=== PATIENT | male | born 1985 | race Hispanic/Latino ===

== ENCOUNTER 2017-02-09 05:14 | Emergency (ER) | payer OTHER ==
[2017-02-09 05:31] VITALS: BP 116/86
--- NOTE | 2017-02-09 05:51 | XRay Report ---
FINAL REPORT EXAM: XR KNEE 3V RT HISTORY: fall RT KNEE PAIN TECHNIQUE: Three views of the right knee were obtained. FINDINGS: There is very mild prepatellar soft tissue swelling. There is no evidence of fracture or joint effusion. All 3 compartments otherwise well maintained IMPRESSION: Mild prepatellar soft tissue swelling. No evidence of fracture.
--- NOTE | 2017-02-09 06:04 | Emergency Department Report ---
ED Lower Extremity HPI - General Chief Complaint: Extremity Injury, Lower Stated Complaint: RIGHT KNEE PAIN Time Seen by Provider: 02/09/17 05:51 Source: patient Mode of arrival: Ambulatory Limitations: No Limitations - History of Present Illness Initial Comments: This is a 31-year-old male nontoxic, well nourished in appearance, no acute signs of distress presents to the ED with c/o of right knee pain. 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 Patient denies any numbness, tingling, fever, chills, nausea, vomiting, chest pressure. Patient denies decreased range of motion. Denies any joint redness. Denies any allergies or past medical history. MD Complaint: knee injury -: This morning Injury: Knee: Right Type of Injury: blunt Place: street/outdoors Severity: mild Severity scale (0 -10): 8 Improves With: nothing Worsens With: nothing Context: fall, direct blow Associated Symptoms: swelling, ambulatory. denies: snap/pop sensation, numbness , tingling, unable to bear weight, able to partially bear weight - Related Data Previous Rx's Medication Instructions Recorded Last Taken Type Ibuprofen [Motrin] 600 mg PO Q8H PRN #30 tablet 02/09/17 Unknown Rx Allergies Allergy/AdvReac Type Severity Reaction Status Date / Time No Known Allergies Allergy Unverified 02/09/17 05:26 ED Review of Systems ROS: Stated complaint: RIGHT KNEE PAIN Other details as noted in HPI Constitutional: denies: chills, fever Eyes: denies: eye pain, eye discharge, vision change ENT: denies: ear pain, throat pain Respiratory: denies: cough, shortness of breath, wheezing Cardiovascular: denies: chest pain, palpitations Endocrine: no symptoms reported Gastrointestinal: denies: abdominal pain, nausea, diarrhea Genitourinary: denies: urgency, dysuria Musculoskeletal: denies: back pain, joint swelling, arthralgia Skin: denies: rash, lesions Neurological: denies: headache, weakness, paresthesias Psychiatric: denies: anxiety, depression Hematological/Lymphatic: denies: easy bleeding, easy bruising ED Past Medical Hx - Past Medical History Previous Medical History?: No - Surgical History Past Surgical History?: No - Social History Smoking Status: Never Smoker Substance Use Type: None - Medications Home Medications: Home Medications Medication Instructions Recorded Confirmed Last Taken Type Ibuprofen [Motrin] 600 mg PO Q8H PRN #30 tablet 02/09/17 Unknown Rx ED Physical Exam - General Limitations: No Limitations General appearance: alert, in no apparent distress - Head Head exam: Present: atraumatic, normocephalic - Eye Eye exam: Present: normal appearance - ENT ENT exam: Present: mucous membranes moist - Neck Neck exam: Present: normal inspection - Respiratory Respiratory exam: Present: normal lung sounds bilaterally. Absent: respiratory distress, wheezes, rales, rhonchi, stridor, chest wall tenderness, accessory muscle use, decreased breath sounds, prolonged expiratory - Cardiovascular Cardiovascular Exam: Present: regular rate, normal rhythm, normal heart sounds. Absent: irregular rhythm, systolic murmur, diastolic murmur, rubs, gallop - GI/Abdominal GI/Abdominal exam: Present: soft, normal bowel sounds. Absent: distended, tenderness, guarding, rebound, rigid, diminished bowel sounds - Rectal Rectal exam: Present: deferred - Extremities Exam Extremities exam: Present: normal inspection, full ROM, tenderness, normal capillary refill. Absent: pedal edema, joint swelling, calf tenderness - Expanded Lower Extremity Exam Right Hip exam: Present: normal inspection, full ROM Upper Leg exam: Present: normal inspection, full ROM Knee exam: Present: normal inspection, full ROM, tenderness, swelling, full knee extension. Absent: abrasion, laceration, ecchymosis, deformity, crepidus, dislocation, effusion, pain w/ pronation/supination, posterior draw sign, pain/ laxity with valgus, pain/laxity with varus Lower Leg exam: Present: normal inspection, full ROM Ankle exam: Present: normal inspection, full ROM Foot/Toe exam: Present: normal inspection, full ROM Neuro vascular tendon exam: Present: no vascular compromise. Absent: pulse deficit, motor deficit, sensory deficit, tendon deficit, extremity cold to touch , pallor, abnormal 2-point discrimination, decreased fine/light touch, foot drop , peroneal nerve deficit, significant pain with passive ROM of distal joint Gait: Positive: observed and limited by pain - Back Exam Back exam: Present: normal inspection, full ROM - Neurological Exam Neurological exam: Present: alert, oriented X3 - Psychiatric Psychiatric exam: Present: normal affect, normal mood - Skin Skin exam: Present: warm, dry, intact, normal color. Absent: rash ED Course Vital Signs 02/09/17 05:22 Temperature 98.3 F Pulse Rate 60 Respiratory 17 Rate Blood Pressure 116/86 O2 Sat by Pulse 99 Oximetry - Reevaluation(s) Reevaluation #1: 02/09/17 06:03 Patient is speaking in full sentences with no signs of distress noted. ED Lower Extremity MDM - Medical Decision Making This is a 31-year-old male that presents with left knee strain. Patient is stable and was examined by me. X-ray has been obtained and is given radiologist with no fractures or dislocation but joint swelling. Patient received Motrin 800 mg by mouth in the ED. Patient received ice to the extremity. Patient was instructed to RICE therapy. Patient received a knee immobilizer. Patient was instructed to Follow-up with a primary care doctor/ orthopedic doctor in 3-5 days or if symptoms worsen and continue return to emergency room as soon as possible. At time time of discharge, the patient does not seem toxic or ill in appearance. No acute signs of distress noted. Patient agrees to discharge treatment plan of care. No further questions noted by the patient. Critical care attestation.: If time is entered above; I have spent that time in minutes in the direct care of this critically ill patient, excluding procedure time. ED Disposition Clinical Impression: Strain of left knee Qualifiers: Encounter type: initial encounter Qualified Code(s): S86.912A - Strain of unspecified muscle(s) and tendon(s) at lower leg level, left leg, initial encounter Disposition: TO HOME OR SELFCARE Is pt being admited?: No Does the pt Need Aspirin: No Condition: Stable Instructions: Knee Pain (ED), Knee Immobilizer (ED), RICE Therapy (ED), Ibuprofen (By mouth) Additional Instructions: Follow-up with a primary care doctor/orthopedic doctor in 3-5 days or if symptoms worsen and continue return to emergency room as soon as possible. Rest, elevate and ice extremity No physical activity that extremity until cleared by orthopedic doctor Prescriptions: Ibuprofen [Motrin] 600 mg PO Q8H PRN #30 tablet PRN Reason: Pain Referrals: ITALO SALINAS MD [Primary Care Provider] - 3-5 Days SHEREE PARISH MD [Staff Physician] - 3-5 Days [facility] [Outside] - 3-5 Days [facility] [Outside] - 3-5 Days Forms: Work/School Release Form(ED)
[2017-02-09] MEDS ORDERED: MOTRIN PO ONE (06:05)
== END 2017-02-09 06:52 | disposition home or self-care (01) ==
LOC: ED 05:14
DX: S86.911A Strain of unspecified muscle(s) and tendon(s) at lower leg level, right leg, initial encounter (principal); W18.39XA Other fall on same level, initial encounter; Y93.89 Activity, other specified; Y92.89 Other specified places as the place of occurrence of the external cause; Y99.8 Other external cause status

== ENCOUNTER 2019-03-21 19:58 | Emergency (ER) | payer OTHER ==
[2019-03-21] MEDS ORDERED: BALANCED SALT IRRIG (BSS) OPHTH SOLN 15 ML OU ONE (20:07)
[2019-03-21] MEDS ORDERED: FLUORESCEIN 1 MG STRIP OP ONE (20:07)
[2019-03-21] MEDS ORDERED: TETRACAINE 0.5% OPHTH SOLN 4ML OU ONE (20:07)
[2019-03-21 20:15] VITALS: BP 166/111
--- NOTE | 2019-03-21 20:28 | Emergency Department Report ---
Eye Injury/Foreign Body - HPI Duration: 2 Days Eye Location: Left Tetanus Status: Up to Date Eye Symptoms: Eye Pain: Yes, Blurred Vision: No, Eye Redness: Yes, Grinding/Hammering Metal: No, Contact Lens Use: Yes, Recalls Injury: Yes, Photophobia: No Other History: 33-year-old male presents to the emergency room for left eye redness and pain. 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 Patient states that he had his contacts on and removed his contacts and use Visine but did not help. Patient states he's been wearing his glasses since he started having irritation to his left eye. Patient denies any other problems or concerns. ED Review of Systems ROS: Stated complaint: L EYE REDNESS Other details as noted in HPI Comment: All other systems reviewed and negative ED Past Medical Hx - Past Medical History Previous Medical History?: No - Surgical History Past Surgical History?: No - Social History Smoking Status: Never Smoker - Medications Home Medications: Home Medications Medication Instructions Recorded Confirmed Last Taken Type Ibuprofen [Motrin] 600 mg PO Q8H PRN #30 tablet 02/09/17 Unknown Rx Erythromycin [Erythromycin Ophth 1 applic OS QID 10 Days #1 tube 03/21/19 Unknown Rx Oint] Eye Injury Exam - Exam General: Vital signs noted. No distress. Alert and acting appropriately. - Visual Acuity Left Eye Exam: Left Injection, Left EOMI, Left Fluorescein Uptake, Neither Eye Foreign Body, Neither Lid Foreign Body, Neither Mucous Discharge, Neither Purulent Discharge, Neither Cell/Flare (slit lamp), Neither Corneal Edema, Neither Photophobia ED Medical Decision Making - Medical Decision Making 33-year-old male presents to the emergency room for left eye redness and pain. 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 Patient states that he had his contacts on and removed his contacts and use Visine but did not help. Patient states he's been wearing his glasses since he started having irritation to his left eye. Patient denies any other problems or concerns. Patient appears to have a left corneal abrasion. About 1:00. Patient be disch arged home on erythromycin discuss washing hands before and after ministry of medication. Also discussed the patient to take ibuprofen or Tylenol for pain management. Discussed the patient to follow-up with an senior business broker. Patient verbalized understanding Critical care attestation.: If time is entered above; I have spent that time in minutes in the direct care of this critically ill patient, excluding procedure time. ED Disposition Clinical Impression: Cornea abrasion Qualifiers: Encounter type: initial encounter Laterality: left Qualified Code(s): S05.02XA - Injury of conjunctiva and corneal abrasion without foreign body, left eye, initial encounter Disposition: DC- TO HOME OR SELFCARE Is pt being admited?: No Does the pt Need Aspirin: No Condition: Stable Instructions: Corneal Abrasion (ED) Additional Instructions: Apply medication to the left eye. Please wash her hands prior to and after administered medication. You can take ibuprofen or Tylenol for pain management. Importantly to follow up with an senior business broker. Prescriptions: Erythromycin [Erythromycin Ophth Oint] 1 applic OS QID 10 Days #1 tube Referrals: DIONTE MEAD MD [Staff Physician] - 3-5 Days Forms: Work/School Release Form(ED)
== END 2019-03-21 21:00 | disposition home or self-care (01) ==
LOC: ED 19:58
DX: S05.02XA Injury of conjunctiva and corneal abrasion without foreign body, left eye, initial encounter (principal); Z79.899 Other long term (current) drug therapy; X58.XXXA Exposure to other specified factors, initial encounter; Y93.89 Activity, other specified; Y92.89 Other specified places as the place of occurrence of the external cause; Y99.8 Other external cause status